=== PATIENT | female | born 1950 | race African-American/Black ===

== ENCOUNTER 2017-04-01 14:51 | Emergency (ER) | payer OTHER ==
[~2017-04-01] VITALS: Ht 172.7 cm; Wt 70.3 kg
--- NOTE | 2017-04-01 14:59 | NUR ---
PRESENTS SELF TO ED DT ASTMA ATTACK, PATIENT COMPLAINTS OF SOB SINCE THIS AM. USED ALBUTEROL PUFFS WITH NO HELP. PATIENT SATING 98% ON ROOM AIR. VSS. PENDING MD BILLINGS
[2017-04-01] MEDS ORDERED: IPRATROPIUM NEB FS 0.5 MG/2.5 ML AMPUL.NEB ONE (15:11)
[2017-04-01] MEDS ORDERED: ALBUTEROL FS 2.5 MG/3 ML VIAL.NEB ONE (15:11)
--- NOTE | 2017-04-01 15:16 | NUR ---
RT AT BS
[2017-04-01] MEDS ORDERED: predniSONE 20 MG TABLET ONE (15:19)
[2017-04-01] MEDS ORDERED: predniSONE 20 MG TABLET PO ONE (15:30)
[2017-04-01] MEDS ORDERED: IPRATROPIUM NEB FS 0.5 MG/2.5 ML AMPUL.NEB NEB ONE (15:30)
[2017-04-01] MEDS ORDERED: ALBUTEROL FS 2.5 MG/3 ML VIAL.NEB NEB ONE (15:30)
[2017-04-01 15:46] VITALS: BP 132/88
--- NOTE | 2017-04-01 15:47 | NUR ---
BREATHING TX STILL ONGOING
--- NOTE | 2017-04-01 16:00 | NUR ---
Patient discharged to home in stable condition. Written and verbal after care instructions given. Patient verbalizes understanding of instruction.
== END 2017-04-01 16:05 | disposition home or self-care (01) ==
LOC: ER 14:57
DX: J45.901 Unspecified asthma with (acute) exacerbation (principal); Z88.1 Allergy status to other antibiotic agents
CPT/HCPCS: 94640; 94644; 99285; A4606; J7512; Z7610

== ENCOUNTER 2017-05-08 12:19 | Emergency (ER) | payer MEDICARE, OTHER ==
[~2017-05-08] VITALS: Ht 172.7 cm; Wt 70.3 kg
[2017-05-08 12:19] VITALS: BP 111/74
== END 2017-05-08 12:47 | disposition home or self-care (01) ==
LOC: ER 12:21
DX: S40.912A Unspecified superficial injury of left shoulder, initial encounter (principal); J45.909 Unspecified asthma, uncomplicated; Z88.1 Allergy status to other antibiotic agents; W55.03XA Scratched by cat, initial encounter; Y93.89 Activity, other specified; Y92.89 Other specified places as the place of occurrence of the external cause; Y99.8 Other external cause status
CPT/HCPCS: A4606; Z7610

== ENCOUNTER 2017-06-10 19:19 | Emergency (ER) | payer MEDICARE, OTHER ==
[~2017-06-10] VITALS: Ht 172.7 cm; Wt 72.6 kg
[2017-06-10 19:23] VITALS: BP 121/82
[2017-06-10 21:19] LABS: BASOPHILS % (AUTO) 0.7 % (0.0-2.0); EOSINOPHILS # (AUTO) 0.1 /CMM (0.0-0.7); EOSINOPHILS % (AUTO) 2.9 % (0.0-6.0); HEMATOCRIT 40 % (33-45); HEMOGLOBIN 13.1 g/dL (11.5-14.8); LYMPHOCYTES # (AUTO) 1.9 /CMM (0.8-4.8); LYMPHOCYTES % (AUTO) 40.5 % (20.0-44.0); MEAN CORPUSCULAR HEMOGLOBIN 30 PG (26.0-33.0); MEAN CORPUSCULAR HGB CONC 33 g/dl (31.0-36.0); MEAN CORPUSCULAR VOLUME 91 fL (82-100); MONOCYTES # (AUTO) 0.4 /CMM (0.1-1.30); MONOCYTES % (AUTO) 8.3 % (2.0-12.0); NEUTROPHILS # (AUTO) 2.2 /CMM (1.8-8.9); NEUTROPHILS % (AUTO) 47.6 % (43.0-81.0); PLATELET COUNT (AUTO) 198 /CMM (150-450); RDW COEFFICIENT OF VARIATION 12.3 (11.5-15.0); RED BLOOD CELL COUNT(AUTO) 4.34 MIL/uL (4.0-5.2); WHITE BLOOD COUNT (AUTO) 4.6 K/uL (4.3-11.0)
[2017-06-10 21:28] LABS: CALCIUM, SERUM 9.4 mg/dL (8.5-10.1); POTASSIUM 3.8 mmol/L (3.5-5.1)
[2017-06-10 21:34] LABS: ALBUMIN 3.7 g/dL (3.4-5.0); BILIRUBIN,TOTAL 0.3 mg/dL (0.2-1.0); TOTAL PROTEIN, SERUM 6.4 g/dL (6.4-8.2)
[2017-06-10 21:56] LABS: APPEARANCE,URINE CLEAR (CLEAR); BILIRUBIN,URINE NEGATIVE (NEGATIVE); BLOOD, URINE NEGATIVE Ery/uL (NEGATIVE); COLOR,URINE YELLOW (YELLOW); KETONES,URINE NEGATIVE (NEGATIVE); LEUKOCYTE ESTERASE ,URINE NEGATIVE (NEGATIVE); NITRITE, URINE NEGATIVE (NEGATIVE); PH,URINE 5.5 (5.0-8.0); PROTEIN,URINE NEGATIVE (NEGATIVE); UGLUCOSE NEGATIVE (NEGATIVE); UROBILINOGEN,URINE 0.2 EU/dL (0.2)
== END 2017-06-10 22:02 | disposition home or self-care (01) ==
LOC: ER 19:20
DX: S61.451A Open bite of right hand, initial encounter (principal); R82.99 Other abnormal findings in urine; J45.909 Unspecified asthma, uncomplicated; Z88.1 Allergy status to other antibiotic agents; W53.11XA Bitten by rat, initial encounter; Y93.89 Activity, other specified; Y92.89 Other specified places as the place of occurrence of the external cause; Y99.8 Other external cause status
CPT/HCPCS: 36415; 80048; 80076; 81001; 83690; 85025; 87086; 99284; A4606; 81000-TC; Z7610

== ENCOUNTER 2017-06-12 20:39 | Emergency (ER) | payer MEDICARE, OTHER ==
[~2017-06-12] VITALS: Ht 172.7 cm; Wt 70.3 kg
[2017-06-12 20:52] VITALS: BP 127/70
[2017-06-12] MEDS ORDERED: ALBUTEROL FS 2.5 MG/3 ML VIAL.NEB ONE (21:27)
[2017-06-12] MEDS ORDERED: IPRATROPIUM NEB FS 0.5 MG/2.5 ML AMPUL.NEB ONE (21:27)
[2017-06-12] MEDS ORDERED: IPRATROPIUM NEB FS 0.5 MG/2.5 ML AMPUL.NEB NEB ONE (21:30)
[2017-06-12] MEDS ORDERED: ALBUTEROL FS 2.5 MG/3 ML VIAL.NEB NEB ONE (21:30)
== END 2017-06-12 21:53 | disposition home or self-care (01) ==
LOC: ER 20:39
DX: J45.901 Unspecified asthma with (acute) exacerbation (principal); F32.9 Major depressive disorder, single episode, unspecified; Z88.1 Allergy status to other antibiotic agents; Z71.89 Other specified counseling
CPT/HCPCS: 94640; 99283; A4606; Z7610